=== PATIENT | male | born 1960 | race Hispanic/Latino ===

== ENCOUNTER 2018-01-17 05:45 | Emergency (ER) | payer OTHER, BC ==
[~2018-01-17] VITALS: Ht 210.8 cm; Wt 90.0 kg
[2018-01-17 06:53] LABS: INFLUENZA A NONE DETECTED (NONE DETECT); INFLUENZA B NONE DETECTED (NONE DETECT)
[2018-01-17] MEDS ORDERED: TUSSIONEX1 ML PO (06:54)
[2018-01-17 06:56] VITALS: BP 150/67
== END 2018-01-17 07:06 | disposition home or self-care (01) | DRG 204 ==
LOC: ED 05:45
PROVIDERS: Emergency Medicine
DX: R05 Cough (principal)